=== PATIENT | male | born 1975 | race Hispanic/Latino ===

== ENCOUNTER 2016-09-26 16:43 | Emergency (ER) | payer SELFPAY ==
[~2016-09-26] VITALS: Ht 162.6 cm; Wt 86.1 kg
[~2016-09-26 16:43] MED LIST: AMPICILLIN500 MG PO; ANUCORT-HC25 MG RE; CLARITHROMYC500 M2 PO; CLONIDINE0.2 MG PO; HYDROCHLOROT12.5 MG PO; KEFLEX500 MG OR; LANSOPRAZOLE15 MG PO; LISINOP/HCTZ1 TA1 PO; LISINOPRIL20 MG PO; PREVACID30 M3 PO; PROTONIX40 M2 PO; ROBITUSSIN AC OR; ULTRAM50 M1 PO
[2016-09-26 18:24] LABS: HEMATOCRIT 44.5 % (39.0-50.0); HEMOGLOBIN 15.2 g/dl (14.0-18.0); IMMATURE GRANULOCYTES 0.4 % (0.0-1.0); MEAN CELL VOLUME 85.7 fL CALC (80.0-100.0); MEAN CORPUSCULAR HGB 29.3 pG CALC (26.0-32.0); MEAN CORPUSCULAR HGB CONC 34.2 g/L CALC (32.0-36.0); NEUT# 6.45 thou/uL (1.82-7.42); RED BLOOD COUNT 5.19 mill/uL (4.70-6.10); RED CELL DISTRI WIDTH 12.5 % (11.5-15.5)
[2016-09-26 18:25] LABS: URINE BILIRUBIN - DIPSTICK NEGATIVE (NEGATIVE); URINE BLOOD DIPSTICK NEGATIVE (NEGATIVE); URINE CLARITY CLEAR; URINE COLOR YELLOW; URINE GLUCOSE - DIPSTICK NEGATIVE (NEGATIVE); URINE KETONE NEGATIVE (NEGATIVE); URINE LEUK ESTERASE NEGATIVE (NEGATIVE); URINE NITRITE - DIPSTICK NEGATIVE (Negative); URINE PROTEIN - DIPSTICK NEGATIVE (NEG-TRACE); URINE SPECIFIC GRAVITY 1.025; URINE UROBILINOGEN - DIPSTICK 0.2 E.U./dL (0.2)
[2016-09-26 18:35] LABS: ALBUMIN 4.8 g/dL (3.2-5.0); ALKALINE PHOSPHATASE 93 u/l (38-126); ANION GAP 17 (6-22 (CALC)); BILIRUBIN, TOTAL 0.7 mg/dL (0.0-1.4); BUN 19 mg/dL (9-20); BUN/CREATININE RATIO 17 (12-20 (CALC)); CARBON DIOXIDE 24 mmol/l (22-30); CHLORIDE 99 mmol/l (95-108); CREATININE 1.1 mg/dL (0.7-1.3); GFR > 60 ML/MIN (>=60 (CALC)); GFR FOR AFR.AMER. > 60 ML/MIN (>=60 (CALC)); GLUCOSE 96 mg/dL (75-110); POTASSIUM 3.8 mmol/l (3.5-5.1); SGOT/AST 31 u/l (17-59); SGPT/ALT 66 u/l (21-72); SODIUM 136 mmol/l (137-146); TOTAL PROTEIN 8.6 g/dL (6.3-8.2)
[2016-09-26 18:47] LABS: AMYLASE 101 u/l (30-110); LIPASE 46 u/l (23-300)
[2016-09-26] MEDS ORDERED: PERCOCET 5/325M1 TAB PO (19:54)
[2016-09-26] MEDS ORDERED: PROTONIX40 MG PO (19:54)
[2016-09-26 19:58] VITALS: BP 127/65
== END 2016-09-26 20:02 | disposition home or self-care (01) | DRG 392 ==
LOC: ED 16:43
PROVIDERS: Emergency Medicine
DX: R10.9 Unspecified abdominal pain (principal); K27.9 Peptic ulcer, site unspecified, unspecified as acute or chronic, without hemorrhage or perforation; I10 Essential (primary) hypertension

== ENCOUNTER 2020-02-22 16:03 | Emergency (ER) | payer SELFPAY ==
[~2020-02-22] VITALS: Ht 165.1 cm; Wt 81.8 kg
[~2020-02-22 16:03] MED LIST changes: +PERCOCET 5/325M1 TAB PO; +PROTONIX40 MG PO
[2020-02-22 16:57] LABS: HEMATOCRIT 45.1 % (39.0-50.0); HEMOGLOBIN 15.2 g/dl (14.0-18.0); IMMATURE GRANULOCYTES 0.2 % (0.0-5.0); MEAN CELL VOLUME 86.1 fL CALC (80.0-100.0); MEAN CORPUSCULAR HGB CONC 33.7 g/dL CAL (32.0-36.0); NEUT# 6.84 thou/uL (1.82-7.42); RED BLOOD COUNT 5.24 mill/uL (4.70-6.10); RED CELL DISTRI WIDTH 12.9 % (11.5-15.5)
[2020-02-22 17:17] LABS: ALBUMIN 4.8 g/dL (3.2-5.0); ALKALINE PHOSPHATASE 104 u/l (38-126); ANION GAP 13 (6-22 (CALC)); BILIRUBIN, TOTAL 0.7 mg/dL (0.0-1.4); BUN 19 mg/dL (9-20); BUN/CREATININE RATIO 23 (12-20 (CALC)); CARBON DIOXIDE 25 mmol/l (22-30); CHLORIDE 98 mmol/l (95-108); CREATININE 0.8 mg/dL (0.7-1.3); GFR > 60 ML/MIN (>=60 (CALC)); GFR FOR AFR.AMER. > 60 ML/MIN (>=60 (CALC)); POTASSIUM 3.6 mmol/l (3.5-5.1); SGOT/AST 30 u/l (17-59); SODIUM 133 mmol/l (137-146); TOTAL PROTEIN 8.2 g/dL (6.3-8.2)
[2020-02-22 17:19] LABS: C-REACTIVE PROTEIN 0.6 mg/dL (0-0.9); LIPASE 75 u/l (23-300)
[2020-02-22 18:09] VITALS: BP 147/90
== END 2020-02-22 18:15 | disposition home or self-care (01) | DRG 866 ==
LOC: ED 16:03
DX: B34.9 Viral infection, unspecified (principal); R73.9 Hyperglycemia, unspecified; I10 Essential (primary) hypertension; Z20.828 Contact with and (suspected) exposure to other viral communicable diseases

== ENCOUNTER 2020-04-13 17:09 | Emergency (ER) | payer SELFPAY ==
[~2020-04-13] VITALS: Ht 165.1 cm; Wt 85.0 kg
[2020-04-13] MEDS ORDERED: LISINOPRIL20 M1 PO (18:00)
[2020-04-13 18:30] LABS: HEMATOCRIT 44.9 % (39.0-50.0); HEMOGLOBIN 15.2 g/dl (14.0-18.0); IMMATURE GRANULOCYTES 0.1 % (0.0-5.0); MEAN CELL VOLUME 86.7 fL CALC (80.0-100.0); MEAN CORPUSCULAR HGB 29.3 pG CALC (26.0-32.0); MEAN CORPUSCULAR HGB CONC 33.9 g/dL CAL (32.0-36.0); RED BLOOD COUNT 5.18 mill/uL (4.70-6.10); RED CELL DISTRI WIDTH 12.5 % (11.5-15.5)
[2020-04-13 18:41] LABS: ALBUMIN 4.8 g/dL (3.2-5.0); ALKALINE PHOSPHATASE 99 u/l (38-126); ANION GAP 13 (6-22 (CALC)); BILIRUBIN, TOTAL 0.6 mg/dL (0.0-1.4); BUN 13 mg/dL (9-20); BUN/CREATININE RATIO 15 (12-20 (CALC)); CARBON DIOXIDE 25 mmol/l (22-30); CHLORIDE 101 mmol/l (95-108); CREATININE 0.8 mg/dL (0.7-1.3); GFR > 60 ML/MIN (>=60 (CALC)); GFR FOR AFR.AMER. > 60 ML/MIN (>=60 (CALC)); POTASSIUM 3.8 mmol/l (3.5-5.1); SGOT/AST 31 u/l (17-59); SODIUM 136 mmol/l (137-146); TOTAL PROTEIN 8.2 g/dL (6.3-8.2)
[2020-04-13 19:08] LABS: URINE BILIRUBIN - DIPSTICK NEGATIVE (NEGATIVE); URINE BLOOD DIPSTICK NEGATIVE (NEGATIVE); URINE CLARITY CLEAR; URINE COLOR YELLOW; URINE GLUCOSE - DIPSTICK NEGATIVE (NEGATIVE); URINE KETONE NEGATIVE (NEGATIVE); URINE LEUK ESTERASE NEGATIVE (Negative); URINE NITRITE - DIPSTICK NEGATIVE (Negative); URINE PH 5.5 (4.5-8.0); URINE PROTEIN - DIPSTICK NEGATIVE (NEG-TRACE); URINE SPECIFIC GRAVITY 1.025; URINE UROBILINOGEN - DIPSTICK 0.2 E.U./dL (0.2)
[2020-04-13 20:30] VITALS: BP 127/76
== END 2020-04-13 20:30 | disposition home or self-care (01) | DRG 392 ==
LOC: ED 17:09
DX: R10.9 Unspecified abdominal pain (principal); I10 Essential (primary) hypertension
CPT/HCPCS: Q9967

== ENCOUNTER 2021-01-17 07:28 | Emergency (ER) | payer OTHER ==
[~2021-01-17 07:28] MED LIST changes: +LISINOPRIL20 M1 PO
[2021-01-17] MEDS ORDERED: ZPAK PO (08:24)
[2021-01-17] MEDS ORDERED: TESSALON PERLE100 MG PO (08:24)
[2021-01-17 08:31] VITALS: BP 174/82
--- NOTE | 2021-01-17 10:28 | NUR ---
CALLED PT LM TO SCHEDULE FOR REGENCOV 01/18 AM
== END 2021-01-17 08:55 | disposition home or self-care (01) | DRG 179 ==
LOC: ED 07:28
DX: U07.1 COVID-19 (principal); J40 Bronchitis, not specified as acute or chronic; I10 Essential (primary) hypertension

== ENCOUNTER 2024-06-02 16:59 | Emergency (ER) | payer OTHER ==
[~2024-06-02] VITALS: Ht 165.1 cm; Wt 97.0 kg
[~2024-06-02 16:59] MED LIST changes: +TESSALON PERLE100 MG PO; +TRAZODONE50 MG PO; +ZPAK PO
[2024-06-02] MEDS ORDERED: PROCTO-MED HC2.5 % PR (17:23)
[2024-06-02] MEDS ORDERED: ANUCORT-HC25 MG RE (17:23)
[2024-06-02 18:42] VITALS: BP 132/80
== END 2024-06-02 18:47 | disposition home or self-care (01) | DRG 395 ==
LOC: ED 16:59
DX: K64.9 Unspecified hemorrhoids (principal)

== ENCOUNTER 2024-07-01 20:00 | Emergency (ER) | payer OTHER ==
[~2024-07-01] VITALS: Ht 165.1 cm; Wt 89.0 kg
[~2024-07-01 20:00] MED LIST changes: +HYDROCHLOROT25 MG PO; +PROCTO-MED HC2.5 % PR
[2024-07-01 20:20] VITALS: BP 148/100
[2024-07-01 20:30] VITALS: BP 143/85
[2024-07-01 20:45] VITALS: BP 139/88
[2024-07-01 21:00] VITALS: BP 139/79
[2024-07-01 21:15] VITALS: BP 137/84
[2024-07-01 21:28] VITALS: BP 137/84
== END 2024-07-01 21:32 | disposition home or self-care (01) | DRG 305 ==
LOC: ED 20:00
DX: I10 Essential (primary) hypertension (principal); T46.4X6A Underdosing of angiotensin-converting-enzyme inhibitors, initial encounter; Z91.128 Patient's intentional underdosing of medication regimen for other reason